=== PATIENT | female | born 1985 | race Caucasian/White ===

== ENCOUNTER 2022-05-01 19:49 | Emergency (ER) | payer SELFPAY ==
[2022-05-01 20:06] VITALS: BP 125/93; PULSE 80; RESP 18; TEMP 37.3; O2SAT 99
--- NOTE | 2022-05-01 20:25 | ED.GENADUL_ITS ---
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 Impression: Vaginal bleeding Primary Care Provider: Unknown,Unknown ED Provider: Antwan Burt Discharge Instructions Additional Instructions: Your blood work and vital signs did not show concerning findings at this time you can take 400mg ibuprofen every 4 hours as needed if you feel more ill, have severe abdominal pain, difficulty breathing or feel weak return to the emergency department call [facility] to arrange for a follow up appointment [phone] Medical Decision Making 37 yo female who denies chronic medical problems and had a mirena iud for approximately 12 years she believes before it fell out approximately 3 months ago, comes in with 2 days of heavy vaginal bleeding and changing her tampon frequently. She denies abdominal pain or cramping, no fevers, no weakness, chest pain or shortness of breath. She states this is her 2nd or 3rd period since the iud fell out and this is the heaviest period. She arrives stable, speaking in full sentences with stable vitals. No pallor, soft nontender abdomen. Suspect metorrhagia, given stable vitals and well appearance doubt emergent or life threatening vaginal bleeding, will obtain hcg, cbc, tsh and reassess. labs unremarkable, and patient stable still no pain. Discussed results with patient, she prefers outpatient f/u to discuss further management options, advised she can try ibuprofen. Return precautions given Differential Diagnosis Differential Diagnosis: dysmenorrhage, ectopic, metorrhagia Lab Data Lab results reviewed: Yes I reviewed the patient's lab results. HPI General Mode of arrival: ambulatory . Date/Time Provider Initiated Documentation: 05/01/22 20:03 . Limitations to Documentation: no limitations . Information obtained by: patient . History of Present Illness 37 year old F presents to the emergency department with the chief complaint of vaginal bleeding, described as moderate, Patient started experiencing this day(s) (2) and it has been constant. No relieving factors improve symptom(s), No exacerbating factors reported . Patient notes denies fever/chills. Patient did receive the following treatments prior to arrival, none General Stated Complaint: HAZARDOUS WASTE MANAGEMENT SPECIALIST BHUMIKA: 4 Review of Systems All systems reviewed & are unremarkable except as noted in HPI and below Constitutional Constitutional: Denies chills, Denies fever(s) and Denies weakness Cardiovascular Cardiovascular: Denies chest pain and Denies dyspnea Respiratory Respiratory: Denies cough and Denies dyspnea Gastrointestinal Gastrointestinal: Denies nausea and Denies vomiting Genitourinary Genitourinary: Denies dysuria Integumentary/Breasts Skin/Breast: Denies rash Neurologic Neurologic: Denies weakness Endocrine Endocrine: Denies cold intolerance and Denies heat intolerance Allergic/Immunologic Allergic/Immunologic: Denies urticaria PFSH All Active Problems (Updated 05/01/22 @ 21:34 by Antwan Burt MD) Vaginal bleeding (Acute) Social History Smoking/Tobacco Use Status: Current every day Tobacco Type: cigarettes Smoking risk assessment performed?: Yes Alcohol Intake: current Alcohol Intake frequency: 0-2 drinks per day Drug use: Daily Substance use type: marijuana Do you feel safe at home: Yes Exam Const General: no acute distress Orientation: alert HENOK Head: normal to inspection Ears: external ears normal General nose exam: external nose normal Mouth: moist mucous membranes Eyes General: appearance normal, both eyes and all related structures Neck Neck: normal visual inspection Resp Effort & Inspection: normal respiratory effort and able to speak in complete sentences Cardio Rate: regular rate GI Palpation: soft and nontender Skin General skin exam: no rashes or lesions noted Neuro General: patient alert and patient oriented x3 Extrem General: normal to inspection Psych Mental Status: mental status grossly normal Course Vital Signs Vital signs: Vital Signs Temperature 37.3 C 05/01/22 20:06 Pulse 80 05/01/22 20:06 Respiratory Rate 18 05/01/22 20:06 Blood Pressure 125/93 H 05/01/22 20:06 Pulse Oximetry 99 05/01/22 20:06 Temperature 37.3 C 05/01/22 20:06 Pulse 80 05/01/22 20:06 Respiratory Rate 18 05/01/22 20:06 Respiratory Effort 05/01/22 20:11 Blood Pressure 125/93 H 05/01/22 20:06 Blood Pressure Position Sitting 05/01/22 20:06 Pulse Oximetry 99 05/01/22 20:06 Oxygen Delivery Method Room Air 05/01/22 20:06 Oxygen Flow Rate 0 05/01/22 20:06 Pain Level 0 05/01/22 20:12
[2022-05-01 20:44] LABS: Abs Immature Grans 0.01 10^3/uL (0.0-0.06); Absolute Basophil Count 0.02 10^3/uL (0.0-0.2); Absolute Eosinophil Count 0.07 10^3/uL (0.0-0.7); Absolute Lymphocyte Count 1.59 10^3/uL (1.2-3.4); Absolute Monocyte Count 0.73 10^3/uL (0.1-0.8); Absolute Neutrophil Count 3.39 10^3/uL (1.2-6.7); Basophils % 0.3; Eosinophils % 1.2; HCT 35.5 % (36.0-46.0); HGB 11.7 g/dL (11.2-15.7); Immature Grans % 0.2; Lymphocytes % 27.4; MCH 31.1 pg (27.0-33.0); MCV 94 fL (80-95); MPV 10.1 fL (8.0-11.0); Monocytes % 12.6; Neutrophils % 58.3; Platelet Count 232 10^3/uL (130-400); RBC 3.76 10^6/uL (3.93-5.22); RDW 13.5 % (11.7-14.6); RDW-SD 46.9 fL; WBC 5.81 10^3/uL (4.4-10.8)
[2022-05-01 21:07] LABS: TSH (W/Ref FT4) 1.74 uIU/mL (0.36-3.74)
== END 2022-05-01 21:45 | disposition home or self-care (01) ==
PROVIDERS: Emergency Provider Emergency Medicine
DX: N93.8 Other specified abnormal uterine and vaginal bleeding (principal)
CPT/HCPCS: 81025; 99282; 84443; 85025; 99283